=== PATIENT | male | born 2000 | race Two or more races ===

== ENCOUNTER 2023-03-16 14:39 | Emergency (ER) | payer OTHER ==
[2023-03-16 15:01] VITALS: RESP 19; TEMP 98.3; BMI 30.8
[2023-03-16 16:43] LABS: BASO % 0.7 % (0-2.0); EOS % 4.4 % (0-4.5); HEMATOCRIT 40.9 % (35.4-49); HEMOGLOBIN 13.5 GM/dL (11.7-16.9); LYMPH % 25.7 % (8-40); MCH 26.7 pg (25.7-33.7); MEAN CELL VOLUME 80.9 fl (80-96); MEAN PLT VOLUME 7.5 fl (7.5-11.1); MONO % 10.4 % (3.8-10.2); NEUT % 58.8 % (42.8-82.8); PLATELET COUNT 289 10^3/uL (134-434); RBC 5.05 M/mm3 (4.00-5.60); RDW 14.6 % (11.9-15.9); WHITE BLOOD COUNT 11.2 K/mm3 (4.0-10.0)
[2023-03-16 16:54] LABS: INR 1.11 (0.83-1.09); PROTHROMBIN TIME (PATIENT) 12.9 SEC (9.7-13.0)
[2023-03-16 16:57] LABS: ACTIVATED PTT 29.9 SECONDS (25.2-36.5)
[2023-03-16 17:07] LABS: ALBUMIN 3.6 g/dl (3.4-5.0); CALCIUM 9.2 mg/dL (8.5-10.1)
[2023-03-16 17:08] LABS: BLOOD UREA NITROGEN 11.7 mg/dL (7-18)
[2023-03-16 17:10] VITALS: BP 119/64; PULSE 80
[2023-03-16 17:12] LABS: BILIRUBIN,TOTAL 0.3 mg/dL (0.2-1)
== END 2023-03-16 17:23 | disposition home or self-care (01) ==
LOC: JER 14:39
DX: K62.5 Hemorrhage of anus and rectum (principal)
CPT/HCPCS: 36415; 80053; 85025; 85610; 85730; 99283-25

== ENCOUNTER 2023-05-12 14:07 | Emergency (ER) | payer OTHER ==
[2023-05-12 14:22] VITALS: TEMP 98.2; BMI 33.2
[2023-05-12] MEDS ORDERED: SODIUM CHLORIDE 1,000 ML IV STA (14:47)
[2023-05-12] MEDS ORDERED: ACETAMINOPHEN 1000 MG/100 ML BAG IVPB ONE (14:47)
[2023-05-12] MEDS ORDERED: ACETAMINOPHEN INJECTION 100 ML IVPB ONE (15:00)
[2023-05-12 15:41] LABS: BASO % 0.5 % (0-2.0); EOS % 4.2 % (0-4.5); HEMATOCRIT 41.3 % (35.4-49); HEMOGLOBIN 13.6 GM/dL (11.7-16.9); LYMPH % 27.5 % (8-40); MCH 27.1 pg (25.7-33.7); MCHC 32.9 g/dl (32.0-35.9); MEAN CELL VOLUME 82.4 fl (80-96); MEAN PLT VOLUME 7.7 fl (7.5-11.1); MONO % 11.7 % (3.8-10.2); NEUT % 56.1 % (42.8-82.8); PLATELET COUNT 284 10^3/uL (134-434); RBC 5.01 M/mm3 (4.00-5.60); RDW 14.7 % (11.9-15.9); WHITE BLOOD COUNT 9.5 K/mm3 (4.0-10.0)
[2023-05-12 16:02] LABS: POTASSIUM 4.4 mmol/L (3.5-5.1)
[2023-05-12 16:05] LABS: ALBUMIN 3.5 g/dl (3.4-5.0)
[2023-05-12 16:08] LABS: CREATININE 0.9 mg/dL (0.55-1.3)
[2023-05-12 16:09] LABS: BILIRUBIN,TOTAL 0.2 mg/dL (0.2-1)
[2023-05-12 16:10] LABS: TOT PROT 6.7 g/dl (6.4-8.2)
[2023-05-12 18:43] VITALS: BP 125/62; PULSE 79; RESP 16
[2023-05-12 18:48] LABS: URINE APPEARANCE CLEAR; URINE BILIRUBIN NEGATIVE (NEGATIVE); URINE COLOR YELLOW; URINE GLUCOSE (UA) NEGATIVE (NEGATIVE); URINE KETONE NEGATIVE (NEGATIVE); URINE LEUK ESTERASE NEGATIVE (NEGATIVE); URINE NITRITE NEGATIVE (NEGATIVE); URINE PROTEIN NEGATIVE (NEGATIVE); URINE UROBILINOGEN 0.2 mg/dL (0.2-1.0)
== END 2023-05-12 18:44 | disposition home or self-care (01) ==
LOC: JER 14:07
PROC: 3E033NZ Introduction of Analgesics, Hypnotics, Sedatives into Peripheral Vein, Percutaneous Approach (ICD-10-PCS; principal; 2023-05-12)
PROC: 3E0337Z Introduction of Electrolytic and Water Balance Substance into Peripheral Vein, Percutaneous Approach (ICD-10-PCS; 2023-05-12)
DX: N20.1 Calculus of ureter (principal); N23 Unspecified renal colic
CPT/HCPCS: 36415; 74177-TC; 80053; 81003; 83690; 85025; 87086; 99285-25; Q9967

== ENCOUNTER 2024-08-17 10:09 | Emergency (ER) | payer OTHER ==
[2024-08-17 10:21] VITALS: BP 118/80; PULSE 71; RESP 17; TEMP 97.7; BMI 30.5
== END 2024-08-17 13:40 | disposition home or self-care (01) ==
LOC: JER 10:09
DX: K64.9 Unspecified hemorrhoids (principal)
CPT/HCPCS: 99282-25